=== PATIENT | female | born 1995 | race Caucasian/White ===

== ENCOUNTER 2018-01-07 15:21 | Emergency (ER) | payer OTHER ==
[~2018-01-07] VITALS: Ht 162.6 cm; Wt 74.8 kg
[~2018-01-07 15:21] MED LIST: CODE1TAB37 PO; Colace 100MG PO; KETO10TA2 PO
== END 2018-01-07 18:20 | disposition home or self-care (01) ==
LOC: ER 15:21
DX: L02.31 Cutaneous abscess of buttock (principal)

== ENCOUNTER 2020-06-29 15:32 | Emergency (ER) | payer OTHER ==
[~2020-06-29] VITALS: Ht 160 cm; Wt 77.1 kg
== END 2020-06-30 17:52 | disposition home or self-care (01) ==
LOC: ER 15:32
DX: O03.6 Delayed or excessive hemorrhage following complete or unspecified spontaneous abortion (principal); Z3A.01 Less than 8 weeks gestation of pregnancy

== ENCOUNTER 2021-05-08 23:42 | Emergency (ER) | payer OTHER ==
[~2021-05-08] VITALS: Ht 160 cm; Wt 79.4 kg
[2021-05-08] MEDS ORDERED: PROGESTERONE200 MG (23:59)
[2021-05-09] MEDS ORDERED: ACETAMINOPHEN650 M2 PO (03:06)
== END 2021-05-09 03:15 | disposition home or self-care (01) ==
LOC: ER 23:42
DX: O46.8X1 Other antepartum hemorrhage, first trimester (principal); O26.891 Other specified pregnancy related conditions, first trimester; R10.2 Pelvic and perineal pain; Z3A.01 Less than 8 weeks gestation of pregnancy

== ENCOUNTER 2021-10-22 13:18 | Emergency (ER) | payer OTHER ==
[~2021-10-22] VITALS: Ht 160 cm; Wt 80.7 kg
[~2021-10-22 13:18] MED LIST changes: +ACETAMINOPHEN650 M2 PO; +PROGESTERONE200 MG
== END 2021-10-22 15:59 | disposition home or self-care (01) ==
LOC: ER 13:18
DX: O20.9 Hemorrhage in early pregnancy, unspecified (principal); Z3A.01 Less than 8 weeks gestation of pregnancy

== ENCOUNTER 2022-03-28 18:23 | Outpatient (CLI) | payer OTHER ==
[~2022-03-28] VITALS: Ht 162.6 cm; Wt 94.3 kg
[~2022-03-28 18:23] MED LIST changes: +DUI500 PO; +PRENA1 CHEW TA1.4 MG PO; +ZOFRAN8 MG PO
[2022-03-28] MEDS ORDERED: ADULT LOW DOSE81 M1 PO (18:52)
[2022-03-28] MEDS ORDERED: PRENATAL DHA200 MG PO (18:53)
[2022-03-28] MEDS ORDERED: PRENATAL CAPLE1 EAC1 PO (18:53)
== END 2022-03-29 08:37 | disposition home or self-care (01) ==
LOC: OBS/DEL 18:23
PROVIDERS: ATTEND Obstetrics & Gynecology
DX: O26.893 Other specified pregnancy related conditions, third trimester (principal); Z3A.29 29 weeks gestation of pregnancy

== ENCOUNTER 2022-05-19 10:08 | Inpatient (IN) | payer OTHER ==
[~2022-05-19] VITALS: Ht 160 cm; Wt 2.3 kg
[~2022-05-19 10:08] MED LIST changes: +ADULT LOW DOSE81 M1 PO; +PRENATAL CAPLE1 EAC1 PO; +PRENATAL DHA200 MG PO
[2022-05-19] MEDS ORDERED: IRON325 MG PO (10:26)
== END 2022-05-23 18:26 | disposition home or self-care (01) | DRG 785 ==
LOC: OBS/DEL 10:08 → OB/GYN 16:58 → LDR 16:58 → OB/GYN 20:18
PROVIDERS: ADMIT Obstetrics & Gynecology; ATTEND Obstetrics & Gynecology
PROC: 0UB70ZZ Excision of Bilateral Fallopian Tubes, Open Approach (ICD-10-PCS; 2022-05-19)
PROC: 4A1HXCZ Monitoring of Products of Conception, Cardiac Rate, External Approach (ICD-10-PCS; 2022-05-19)
PROC: 10D00Z1 Extraction of Products of Conception, Low, Open Approach (ICD-10-PCS; principal; 2022-05-19 18:00)
DX: O60.14X0 Preterm labor third trimester with preterm delivery third trimester, not applicable or unspecified (principal); O34.211 Maternal care for low transverse scar from previous cesarean delivery; Z3A.36 36 weeks gestation of pregnancy; Z37.0 Single live birth; Z30.2 Encounter for sterilization; Z20.822 Contact with and (suspected) exposure to COVID-19

== ENCOUNTER 2023-08-17 11:05 | Emergency (ER) | payer OTHER ==
[~2023-08-17] VITALS: Ht 160 cm; Wt 84.8 kg
[~2023-08-17 11:05] MED LIST changes: +IRON325 MG PO
[2023-08-17 12:13] LABS: HEMATOCRIT 30.7 % (36.0-45.00); MEAN CELL VOLUME 79.1 fL (80.00-100.00); MEAN CORPUSCULAR HEMOGLOBIN 25.7 pg (27.00-32.0); MEAN CORPUSCULAR HGB CONC 32.5 g/dl (32.0-36.0); PLATELET COUNT 400 K/uL (150-450); RED BLOOD COUNT 3.88 M/uL (4.00-6.00); RED CELL DISTRIBUTION WIDTH 14.8 % (11.5-14.5)
== END 2023-08-17 14:35 | disposition home or self-care (01) ==
LOC: ER 11:06
PROVIDERS: Emergency Medicine
DX: N93.9 Abnormal uterine and vaginal bleeding, unspecified (principal)